=== PATIENT | male | born 1990 | race Caucasian/White ===

== ENCOUNTER 2021-08-17 16:58 | Emergency (ER) | payer BC ==
[2021-08-17 18:22] LABS: HEMOGLOBIN 16.4 gm/dl (14.0-17.5); RED BLOOD COUNT 4.88 M/UL (4.20-5.50); WHITE BLOOD COUNT 13.4 K/UL (4.5-11.0)
[2021-08-17] MEDS ORDERED: ZOFRAN ODT 4 MG4 MG GT (20:34)
[2021-08-17] MEDS ORDERED: PERCOCET 5/325 T1 EA PO (20:36)
== END 2021-08-17 21:29 | disposition home or self-care (01) ==
LOC: ER1 16:58
PROVIDERS: Physician Assistant
DX: N13.2 Hydronephrosis with renal and ureteral calculous obstruction (principal); I10 Essential (primary) hypertension; Z88.0 Allergy status to penicillin; F17.290 Nicotine dependence, other tobacco product, uncomplicated
CPT/HCPCS: 80053; 83690; 85025; 96374; 96375; 99284; J1885; J2405; J7030